=== PATIENT | female | born 1945 | race Caucasian/White ===

== ENCOUNTER 2023-09-11 14:11 | Outpatient (RCR) | payer MEDICARE, SELFPAY | END 2023-09-11 23:59 | disposition home or self-care (01) | LOC: ROT 14:11 | PROVIDERS: ATTENDING PHYSICIAN Orthopaedic Surgery Hand Surgery; FAMILY PHYSICIAN Specialist | DX: Z47.89 Encounter for other orthopedic aftercare (principal); M18.12 Unilateral primary osteoarthritis of first carpometacarpal joint, left hand; Z73.6 Limitation of activities due to disability | CPT/HCPCS: 97010; 97110; 97140; 97166; 97535 ==

== ENCOUNTER → 2023-10-08 14:54 | Outpatient (REF) | payer MEDICARE, SELFPAY | LOC: WDC 14:54 | PROVIDERS: ATTENDING PHYSICIAN Internal Medicine | DX: Z12.31 Encounter for screening mammogram for malignant neoplasm of breast (principal) | CPT/HCPCS: 77063; 77067 ==

== ENCOUNTER → 2023-10-15 09:29 | Outpatient (REF) | payer MEDICARE, SELFPAY | LOC: WDC 09:29 | PROVIDERS: ATTENDING PHYSICIAN Internal Medicine | DX: R92.8 Other abnormal and inconclusive findings on diagnostic imaging of breast (principal) | CPT/HCPCS: 76642 ==

== ENCOUNTER → 2024-10-09 12:57 | Outpatient (REF) | payer MEDICARE, SELFPAY | LOC: WDC 12:57 | PROVIDERS: ATTENDING PHYSICIAN Internal Medicine | DX: Z12.31 Encounter for screening mammogram for malignant neoplasm of breast (principal) | CPT/HCPCS: 77063; 77067 ==